=== PATIENT | male | born 1955 | race Caucasian/White ===

== ENCOUNTER 2021-11-14 09:15 | Emergency (ER) | payer OTHER ==
[2021-11-14] VITALS (10 sets, daily range): BP systolic 149–180; BP diastolic 70–89
[~2021-11-14] VITALS: Ht 172.7 cm; Wt 75.9 kg
[2021-11-14 09:41] LABS: HEMATOCRIT 42.8 % (39.0-50.0); HEMOGLOBIN 14.3 g/dl (14.0-18.0); IMMATURE GRANULOCYTES 0.2 % (0.0-5.0); MEAN CELL VOLUME 90.3 fL CALC (80.0-100.0); MEAN CORPUSCULAR HGB 30.2 pG CALC (26.0-32.0); MEAN CORPUSCULAR HGB CONC 33.4 g/dL CAL (32.0-36.0); NEUT# 4.24 thou/uL (1.82-7.42); RED BLOOD COUNT 4.74 mill/uL (4.70-6.10); RED CELL DISTRI WIDTH 12.7 % (11.5-15.5)
[2021-11-14 10:48] LABS: ALBUMIN 4.4 g/dL (3.2-5.0); ALKALINE PHOSPHATASE 69 u/l (38-126); ANION GAP 13 (6-22 (CALC)); BILIRUBIN, TOTAL 1.1 mg/dL (0.0-1.4); BUN 29 mg/dL (8-23); BUN/CREATININE RATIO 22 (12-20 (CALC)); CARBON DIOXIDE 25 mmol/l (22-30); CHLORIDE 110 mmol/l (95-108); CREATININE 1.3 mg/dL (0.7-1.3); GFR FOR AFR.AMER. > 60 ML/MIN (>=60 (CALC)); GFR OTHER RACES 55 ML/MIN (>=60 (CALC)); POTASSIUM 4.7 mmol/l (3.5-5.1); SGOT/AST 33 u/l (19-48); SODIUM 143 mmol/l (137-146); TOTAL PROTEIN 7.7 g/dL (6.3-8.2)
== END 2021-11-14 12:17 | disposition home or self-care (01) | DRG 310 ==
LOC: ED 09:15
PROVIDERS: Family Medicine
DX: R00.2 Palpitations (principal); I48.91 Unspecified atrial fibrillation; I49.3 Ventricular premature depolarization; I10 Essential (primary) hypertension; Z86.73 Personal history of transient ischemic attack (TIA), and cerebral infarction without residual deficits

== ENCOUNTER 2021-12-24 10:44 | Observation (INO) | payer OTHER ==
[2021-12-24] VITALS (15 sets, daily range): BP systolic 140–184; BP diastolic 66–96
[~2021-12-24] VITALS: Ht 172.7 cm; Wt 77.0 kg
--- NOTE | 2021-12-24 10:45 | NUR ---
PT TO ROOM VIA EMS
[2021-12-24] MEDS ORDERED: ROSUVASTATIN CAL5 MG (11:14)
[2021-12-24] MEDS ORDERED: ELIQUIS5 MG PO (11:15)
[2021-12-24] MEDS ORDERED: CAPOTEN50 MG PO (11:15)
[2021-12-24] MEDS ORDERED: METOPROL TAR25 MG PO (11:16)
[2021-12-24 11:18] LABS: HEMATOCRIT 41.3 % (39.0-50.0); HEMOGLOBIN 13.5 g/dl (14.0-18.0); IMMATURE GRANULOCYTES 0.2 % (0.0-5.0); MEAN CELL VOLUME 93.9 fL CALC (80.0-100.0); MEAN CORPUSCULAR HGB 30.7 pG CALC (26.0-32.0); MEAN CORPUSCULAR HGB CONC 32.7 g/dL CAL (32.0-36.0); NEUT# 3.04 thou/uL (1.82-7.42); RED BLOOD COUNT 4.4 mill/uL (4.70-6.10); RED CELL DISTRI WIDTH 12.9 % (11.5-15.5)
[2021-12-24 11:40] LABS: ALBUMIN 4.4 g/dL (3.2-5.0); ALKALINE PHOSPHATASE 65 u/l (38-126); ANION GAP 14 (6-22 (CALC)); BUN 23 mg/dL (8-23); BUN/CREATININE RATIO 20 (12-20 (CALC)); CARBON DIOXIDE 25 mmol/l (22-30); CHLORIDE 107 mmol/l (95-108); CREATININE 1.2 mg/dL (0.7-1.3); GFR FOR AFR.AMER. > 60 ML/MIN (>=60 (CALC)); GFR OTHER RACES 60 ML/MIN (>=60 (CALC)); POTASSIUM 4.8 mmol/l (3.5-5.1); SGOT/AST 38 u/l (19-48); SODIUM 141 mmol/l (137-146); TOTAL PROTEIN 7.3 g/dL (6.3-8.2)
--- NOTE | 2021-12-24 12:02 | NUR ---
Reassessment of patient completed. No distress noted. MEDS GIVEN
--- NOTE | 2021-12-24 13:00 | NUR ---
Reassessment of patient completed. No distress noted.
--- NOTE | 2021-12-24 14:00 | NUR ---
Reassessment of patient completed. No distress noted.
--- NOTE | 2021-12-24 14:38 | NUR ---
PT IS ADMITTED TO [id number]. REPORT CALLED TO NURSE LAFLEUR. PT IS BEING TRANSPORTED TO ROOM VIA WHEELCHAIR AND IS ON TELE.
[2021-12-25 03:05] LABS: CHOLESTEROL HDL RATIO 3.7 (<4.4 (CALC)); MAGNESIUM 2.1 mg/dL (1.6-2.3)
[2021-12-25 04:01] VITALS: BP 155/77
--- NOTE | 2021-12-25 04:21 | NUR ---
CALL RECEIVED FROM ED, PER [facility] PATIENT IS IN TRIGEMNIY. STATE EKG ORDERED, [employer]GER NOTIFIED.
[2021-12-25 06:16] VITALS: BP 138/73
[2021-12-25 06:44] VITALS: BP 174/62
[2021-12-25 11:16] VITALS: BP 160/73
[2021-12-25] MEDS ORDERED: NORVASC5 M1 PO (13:05)
== END 2021-12-25 15:52 | disposition home or self-care (01) | DRG 313 ==
LOC: ED 10:44 → ED-I 11:25 → ED 13:21 → MS2 13:22
PROVIDERS: Emergency Medicine; ADMIT Internal Medicine; ATTEND Internal Medicine
DX: R07.9 Chest pain, unspecified (principal); R00.2 Palpitations; I49.3 Ventricular premature depolarization; I10 Essential (primary) hypertension; I48.0 Paroxysmal atrial fibrillation; F06.4 Anxiety disorder due to known physiological condition; E78.00 Pure hypercholesterolemia, unspecified; F17.200 Nicotine dependence, unspecified, uncomplicated; Z79.01 Long term (current) use of anticoagulants; Z86.73 Personal history of transient ischemic attack (TIA), and cerebral infarction without residual deficits; Z20.822 Contact with and (suspected) exposure to COVID-19
CPT/HCPCS: J1650

== ENCOUNTER 2022-03-10 09:52 | Emergency (ER) | payer OTHER ==
[~2022-03-10] VITALS: Ht 172.7 cm; Wt 73.6 kg
[2022-03-10] VITALS (12 sets, daily range): BP systolic 135–166; BP diastolic 60–84
[~2022-03-10 09:52] MED LIST: CAPOTEN50 MG PO; ELIQUIS5 MG PO; METOPROL TAR25 MG PO; NORVASC5 M1 PO; ROSUVASTATIN CAL5 MG
[2022-03-10] MEDS ORDERED: ASPIRIN81 MG PO (10:25)
[2022-03-10 11:16] LABS: BASO% 0.6 % (0-3); EOS% 1.5 % (0-8); HEMATOCRIT 38.7 % (39.0-50.0); HEMOGLOBIN 12.8 g/dl (14.0-18.0); IMMATURE GRANULOCYTES 0.1 % (0.0-5.0); LYMPH% 25.3 % (15-41); MEAN CELL VOLUME 95.8 fL CALC (80.0-100.0); MEAN CORPUSCULAR HGB 31.7 pG CALC (26.0-32.0); MEAN CORPUSCULAR HGB CONC 33.1 g/dL CAL (32.0-36.0); MONO% 11.5 % (2-13); NEUT# 4.17 thou/uL (1.82-7.42); RED BLOOD COUNT 4.04 mill/uL (4.70-6.10); RED CELL DISTRI WIDTH 12.9 % (11.5-15.5)
[2022-03-10 11:30] LABS: ALKALINE PHOSPHATASE 54 u/l (38-126); ANION GAP 10 (6-22 (CALC)); BILIRUBIN, TOTAL 0.7 mg/dL (0.0-1.4); BUN 25 mg/dL (8-23); BUN/CREATININE RATIO 23 (12-20 (CALC)); C-REACTIVE PROTEIN < 0.5 mg/dL (0-0.9); CARBON DIOXIDE 27 mmol/l (22-30); CHLORIDE 110 mmol/l (95-108); CREATININE 1.1 mg/dL (0.7-1.3); GFR FOR AFR.AMER. > 60 ML/MIN (>=60 (CALC)); GFR OTHER RACES > 60 ML/MIN (>=60 (CALC)); POTASSIUM 5.2 mmol/l (3.5-5.1); SGOT/AST 36 u/l (19-48); SODIUM 142 mmol/l (137-146); TOTAL PROTEIN 6.9 g/dL (6.3-8.2)
== END 2022-03-10 12:47 | disposition home or self-care (01) | DRG 125 ==
LOC: ED 09:52
PROVIDERS: Family Medicine
DX: H53.141 Visual discomfort, right eye (principal); I48.91 Unspecified atrial fibrillation; Z79.01 Long term (current) use of anticoagulants

== ENCOUNTER 2022-05-15 10:52 | Emergency (ER) | payer OTHER ==
[~2022-05-15] VITALS: Ht 172.7 cm; Wt 75.8 kg
[2022-05-15] VITALS (25 sets, daily range): BP systolic 105–159; BP diastolic 69–102
[~2022-05-15 10:52] MED LIST changes: +ASPIRIN81 MG PO
[2022-05-15 12:05] LABS: BASO% 0.5 % (0-3); EOS% 2.1 % (0-8); HEMATOCRIT 44.5 % (39.0-50.0); HEMOGLOBIN 14.4 g/dl (14.0-18.0); IMMATURE GRANULOCYTES 0.3 % (0.0-5.0); LYMPH% 34.9 % (15-41); MEAN CELL VOLUME 92.1 fL CALC (80.0-100.0); MEAN CORPUSCULAR HGB 29.8 pG CALC (26.0-32.0); MEAN CORPUSCULAR HGB CONC 32.4 g/dL CAL (32.0-36.0); MONO% 10.7 % (2-13); NEUT# 3.88 thou/uL (1.82-7.42); NEUT% 51.5 % (42-76); RED BLOOD COUNT 4.83 mill/uL (4.70-6.10); RED CELL DISTRI WIDTH 12.8 % (11.5-15.5)
[2022-05-15 12:11] LABS: ALBUMIN 4.4 g/dL (3.2-5.0); ALKALINE PHOSPHATASE 58 u/l (38-126); ANION GAP 12 (6-22 (CALC)); BILIRUBIN, TOTAL 0.9 mg/dL (0.2-1.3); BUN 30 mg/dL (8-23); BUN/CREATININE RATIO 25 (12-20 (CALC)); CARBON DIOXIDE 25 mmol/l (22-30); CHLORIDE 107 mmol/l (95-108); CREATININE 1.2 mg/dL (0.7-1.3); GFR FOR AFR.AMER. > 60 ML/MIN (>=60 (CALC)); GFR OTHER RACES 60 ML/MIN (>=60 (CALC)); POTASSIUM 4.6 mmol/l (3.5-5.1); SGOT/AST 37 u/l (19-48); SODIUM 140 mmol/l (137-146); TOTAL PROTEIN 7.1 g/dL (6.3-8.2)
[2022-05-15] MEDS ORDERED: CORDARONE/200 MG/TAB PO (16:04)
== END 2022-05-15 16:24 | disposition home or self-care (01) | DRG 313 ==
LOC: ED 10:52
PROVIDERS: Family Medicine
DX: R07.9 Chest pain, unspecified (principal); I48.91 Unspecified atrial fibrillation; I10 Essential (primary) hypertension; Z95.5 Presence of coronary angioplasty implant and graft; I25.10 Atherosclerotic heart disease of native coronary artery without angina pectoris